=== PATIENT | female | born 1985 | race African-American/Black ===

== ENCOUNTER 2025-07-28 07:44 | Emergency (ER) | payer BC, MEDICAID, SELFPAY ==
[2025-07-28] VITALS (25 sets, daily range): BP systolic 103–152; BP diastolic 57–92; PULSE 54–74; RESP 20; TEMP 36.5; O2SAT 96–100
[2025-07-28 07:59] LABS: Appearance Urine Clear (Clear)
--- NOTE | 2025-07-28 08:28 | ED.GENADULT ---
HPI - General Adult General Time Seen by Provider: 08:28 Date Seen: 07/28/25 Chief complaint: Dizziness/Vertigo Stated complaint: dizziness Time Seen by Provider: 07/28/25 08:27 Source: patient, EMS and RN notes reviewed Mode of arrival: EMS Limitations: no limitations History of Present Illness HPI narrative: This 40-year-old female was brought in by EMS the ER after awakening feeling dizzy this morning. She describes it as a room spinning sensation. It is worse with movement, makes her feel nauseated. EMS did report to staff that she has a history of dizziness related anxiety, has taken meclizine for this with relief in the past. EMS started an IV and gave Zofran, helped her nausea but not her dizziness. She has been able to walk unassisted to the room and bathroom but still states she is symptomatic with the room spinning. She reports she is 6 months and did have preeclampsia during . She had a tubal ligation after this . She notes that she has had episodes in the past but nothing this severe. She tried to find her meclizine but somehow it is lost. She notes no numbness tingling, no incoordination. No headache, has not been sick with any cough or cold symptoms, no respiratory symptoms. Here is no tinnitus. No hearing loss. She states this is the most severe she has ever had symptoms. She awoke around 6:00 a.m. feeling nauseated, thought she has maybe going have to throw up and then she realized she was dizzy, describes it as a spinning sensation. 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 She is status post tubal ligation. She has a history of severe preeclampsia. Related Data Home Medications ?Medication ?Instructions ?Recorded ?Confirmed sertraline .ROUTE 07/28/25 Previous Rx's ?Medication ?Instructions ?Recorded meclizine 25 mg tablet 25 mg PO QID PRN #60 tabs 07/28/25 Allergies Allergy/AdvReac Type Severity Reaction Status Date / Time tramadol Allergy Unknown Verified 07/28/25 08:01 Review of Systems Status of ROS: Reports: 6 or more systems reviewed and unremarkable except as noted in History and below PFSH PFSH Social History Smoking Status: Never smoker Do you use any of these nicotine containing products: None Second hand tobacco smoke exposure: No How often do you have a drink containing alcohol: never AUDIT-C Alcohol total score: 0 Non-prescribed substance use: denies use Exam Const: Vital Signs, click to edit/add: Vital Signs - 24 hr 07/28/25 07:50 07/28/25 08:02 07/28/25 08:03 Temperature 97.7 F Pulse Rate 55 L 56 L Pulse Rate [Pulse Oximeter] 63 Respiratory Rate 20 Blood Pressure 136/82 Blood Pressure [Ri ght Upper Arm] 152/92 H Pulse Oximetry 98 98 98 Oxygen Delivery Me thod Room Air 07/28/25 08:15 07/28/25 08:17 07/28/25 08:30 Temperature Pulse Rate 62 58 L 57 L Pulse Rate [Pulse Oximeter] Respiratory Rate Blood Pressure 111/62 Blood Pressure [Ri ght Upper Arm] Pulse Oximetry 97 96 98 Oxygen Delivery Me thod 07/28/25 08:32 07/28/25 08:45 07/28/25 08:46 Temperature Pulse Rate 73 56 L 60 Pulse Rate [Pulse Oximeter] Respiratory Rate Blood Pressure 105/57 L 112/62 Blood Pressure [Ri ght Upper Arm] Pulse Oximetry 100 99 99 Oxygen Delivery Me thod 07/28/25 09:00 07/28/25 09:01 07/28/25 09:02 Temperature Pulse Rate 67 69 65 Pulse Rate [Pulse Oximeter] Respiratory Rate Blood Pressure 113/86 Blood Pressure [Ri ght Upper Arm] Pulse Oximetry 98 98 100 Oxygen Delivery Me thod 07/28/25 09:05 07/28/25 09:17 07/28/25 09:18 Temperature Pulse Rate 67 68 Pulse Rate [Pulse Oximeter] Respiratory Rate Blood Pressure 122/85 Blood Pressure [Ri ght Upper Arm] Pulse Oximetry 99 98 99 Oxygen Delivery Me thod 07/28/25 09:30 Temperature Pulse Rate 63 Pulse Rate [Pulse Oximeter] Respiratory Rate Blood Pressure Blood Pressure [Ri ght Upper Arm] Pulse Oximetry 98 Oxygen Delivery Me thod This 40-year-old female is lying on the bed in exam room to, lying on her left side with covers pulled up over her head. She is alert, interactive, very pleasant. Pupils are about 2-3 mm, equal and round, conjugate gaze. She does seem to have a little fine beating nystagmus centrally but really has lateral beating to the left gaze,, do not see it looking to the right. Head impulse causes her symptoms, difficult to make her keep her eyes open so I can watch her. She notes it bothers her with head impulse to both sides but definitely seem like she complained that a bothered her more when I did it to the right. She has some wax in her canals but can see down to little bit of the TMs, note no drainage or erythema. Symmetrical facial function otherwise, speech is normal. Lungs are clear, good air entry, no wheezing or crackles, CV regular rate and rhythm, no murmur, normal S1-S2. She has symmetrical 5/5 strength throughout her upper and lower extremities, normal sensation throughout. Documenting provider has reviewed patient's vital signs: yes Course Course ED Course: This patient sounds like she has peripheral vertigo but will talk to Neurology about her. She does have higher risk for possible vascular complications given her history with preeclampsia. Her exam is not necessarily consistent with peripheral vertigo. Will give her meclizine and give her IV dose of Valium to see if that helps with her symptoms. Have reviewed with her the differential between central and peripheral vertigo. This can be difficult to sort out without neuro imaging and will touch base with Neurology. Reevaluation(s) Time of Reevaluation #1: 10:10 Reevaluation #1: Patient notes she is feeling better. We reviewed her normal head CT. Plan will be to discharge to home with meclizine, return with worsening or unrelenting symptoms. Consultations Consultation #1: Have spoken to [facility] Neuro from [facility]. He feels there are symptoms here that are more suggestive of peripheral. Her wanting to keep her eyes closed makes her feel better, movement worsens this. Her head impulse generated symptoms, she preferred to keep her eyes closed, was difficult to keep her eyes open. She has had a history of this in the past. We are going to do a plain head CT at his request. If the head CT is not showing anything, she responds to the medicines, he believes the pictures more peripheral. I will let him know if we are not meeting these criteria and he will see her at that point. Patient is updated on this. Time: 08:54 Vital Signs Vital signs: Initial Vital Signs Temperature 97.7 F 07/28/25 07:50 Temperature Source Temporal Artery Scan 07/28/25 07:50 Pulse Rate 63 07/28/25 07:50 Respiratory Rate 20 07/28/25 07:50 Blood Pressure 152/92 H 07/28/25 07:50 Blood Pressure Mean 112 H 07/28/25 07:50 Blood Pressure Position Supine 07/28/25 07:50 Pulse Oximetry 98 07/28/25 07:50 Oxygen Delivery Method Room Air 07/28/25 07:50 Vital Signs Temperature 97.7 F 07/28/25 07:50 Pulse Rate 63 07/28/25 07:50 Respiratory Rate 20 07/28/25 07:50 Blood Pressure 152/92 H 07/28/25 07:50 Pulse Oximetry 98 07/28/25 07:50 Oxygen Delivery Method Room Air 07/28/25 07:50 Temperature 97.7 F 07/28/25 07:50 Pulse Rate 63 07/28/25 09:30 Respiratory Rate 20 07/28/25 07:50 Blood Pressure 122/85 07/28/25 09:18 Pulse Oximetry 98 07/28/25 09:30 Oxygen Delivery Method Room Air 07/28/25 07:50 Medications Administered Medications: Discontinued Medications Generic Name Dose Route Start Last Admin Trade Name Freq PRN Reason Stop Dose Admin Diazepam 5 mg 07/28/25 08:39 07/28/25 08:51 Diazepam 5 Mg/Ml Inj IV 07/28/25 08:40 5 mg ONCE ONE Administration Sodium Chloride 500 mls @ 500 mls/hr 07/28/25 08:39 07/28/25 08:51 0.9 % Sodium Chloride 500 Ml IV 07/28/25 09:38 500 mls/hr .Q1H ONE Administration Meclizine HCl 25 mg 07/28/25 08:39 07/28/25 08:51 Meclizine Hcl 25 Mg Tablet PO 07/28/25 08:40 25 mg ONCE ONE Administration Medical Decision Making Lab Data Labs: Lab Results 07/28/25 07/28/25 Range/Units 07:50 08:51 WBC 6.47 (4.50-11.00) K/uL RBC 4.79 (4.00-5.20) m/uL Hgb 11.4 L (12.0-16.0) gm/dL Hct 33.1 (33.0-51.0) % MCV 69 L (80-100) fL MCH 24 L (26-34) pg MCHC 34 (32-36) gm/dL RDW Coeff of [place] 15.3 (11.5-15.5) % Plt Count 314 (140-440) K/uL Neut % (Auto) 69.7 (42.0-72.0) % Lymph % (Auto) 22.4 (20-44) % [place] % (Auto) 6.2 (0.0-11.0) % Eos % (Auto) 0.8 (0.0-7.0) % Baso % (Auto) 0.9 (0.0-3.0) % Neut # (Auto) 4.51 (1.7-7.0) K/uL Lymph # (Auto) 1.45 (0.90-2.90) K/uL [place] # (Auto) 0.40 (0.00-0.90) K/UL Eos # (Auto) 0.05 (0.00-0.50) K/uL Baso # (Auto) 0.06 (0.00-0.30) K/uL Abs Immat Gran (auto) 0.00 (0.00-0.30) K/uL Imm/Tot Granulo (auto) 0.0 % Sodium 139 (135-149) mmol/L Potassium 3.9 (3.6-5.1) mmol/L Chloride 103 (96-114) mmol/L Carbon Dioxide 27 (20-32) mmol/L Anion Gap 9 (7-15) mEq/L BUN 10 (5-24) mg/dL Creatinine 0.9 (0.5-1.5) mg/dL Estimated GFR 84 ml/min Glucose 116 H (60-115) mg/dL Calcium 9.0 (8.4-10.6) mg/dL Urine Color Yellow (Yellow) Urine Appearance Clear (Clear) Urine pH 8.0 (5.0-8.5) Ur Specific [place] 1.015 (1.000-1.030) Urine Protein Negative (Negative) Urine Glucose (UA) Negative (Negative) Urine Ketones Negative (Negative) Urine Blood 2+ A (Negative) Urine Nitrite Negative (Negative) Urine Bilirubin Negative (Negative) Urine Urobilinogen 0.2 (0.2-1.0) Ur Leukocyte Esterase Negative (Negative) Urine RBC 0-2 (0-2) Urine WBC 0-2 (0-5) Ur Squamous Epith Cells Few (None-Few) Urine Bacteria Few A (None) Imaging Data CT scan - head: Attestation: I have reviewed the pertinent imaging results. Radiologist's impression: Patient: RUSTAM ATWOOD Facility:?[facility] Patient ID:?[id number] Site Patient ID:?[id number]. Site :?[id number] Study:?CT-Head W/O-07/28/2025 9:20:56 AM Ordering Physician:?Debbie Boo Final Report: Indication: Vertigo. Technique: Noncontrast CT images of the brain. Comparison: None. Findings: The ventricles and sulci are within normal limits for patient age. No mass effect or midline shift. Hale-white differentiation is maintained. No acute intracranial hemorrhage or pathologic extra-axial fluid collection. Globes are symmetric. Calvarium is intact. Mild opacification of the ethmoid air cells. Mastoid air cells are clear. Impression: No acute intracranial hemorrhage or mass effect. Please note that all CT scans at this facility use dose modulation, iterative reconstruction, and/or weight-based dosing when appropriate to reduce radiation dose to as low as reasonably achievable. Dictated by Andrew Oconnor MD @ 07/28/2025 9:26:01 AM (Electronic Signature) ECG Data Attestation: I personally reviewed and interpreted this ECG as follows: (Sinus bradycardia, 57 beats per minute, no ischemia or infarct noted.) Prior ECG tracings: not available for review Discharge Plan Discharge Clinical Impression: Vertigo Patient Disposition: Home, Self-Care Condition: Stable Instructions: Vertigo (ED) Additional Instructions: Can use the meclizine 25 mg every 6 hours as needed for symptoms. Take position changes slowly, try to keep eyes open and fix your gaze on something when moving. If your symptoms are worsening despite the meclizine, not improving with meclizine, return for further evaluation or if you have other concerns. Activity Level: Activity as Tolerated Prescriptions: New meclizine 25 mg tablet 25 mg PO QID PRNQty: 60 0RF No Action sertraline [Zoloft] .ROUTE Follow Up/Referrals: Provider,Not a Local [Primary Care Provider, Family Practice] Stand Alone Forms: Appear Info Instructions
[2025-07-28] MEDS: diazePAM 5 MG/ML inj IV (08:51)
[2025-07-28] MEDS: MECLIZINE HCL 25 MG TABLET PO (08:51)
[2025-07-28] MEDS: 0.9 % SODIUM CHLORIDE 500 ML 500 ML IV (08:51)
--- OUTSIDE RECORDS SUMMARY | 2025-07-28 08:53 | XMS_ITS | Clinical Summary ---
Author Organization [facility] Address [address] [place] [address] Care Team Providers Care Finish Repairer Name Role Phone Unavailable Primary Care Provider Unavailabl e Source Comments Patient records contain information from all sites at [facility]. For routine questions regarding patient records, call [phone] during business hours, M-F 8:00 AM - 5:00 PM Central Time. Record requests for emergency care only can be directed to [phone] at any time.[facility] Allergies Active Allergy Reactions Criticality Noted Date Comments Gabapentin Other (see comments) 07/20/2023 Tramadol GI intolerance 03/01/2020 Medications * This document contains information received from the source organization and may not represent a complete record from that organization. ferrous sulfate 325 mg (65 mg iron) tablet Take 1 tablet (65 mg of iron total) by mouth every other day. 45 tablet 2 4 Active cholecalciferol (Vitamin D3) 50 mcg (2,000 Unit) tablet Take 1 tablet (50 mcg total) by mouth daily. 90 tablet 3 4 Active omeprazole (PriLOSEC) [address] capsule TAKE 1 CAPSULE(20 MG) BY MOUTH DAILY BEFORE BREAKFAST 90 capsule 5 Active acetaminophen (TylenoL) 325 mg tablet Take 325-650 mg by mouth every 4 (four) hours as needed. 5 Active ibuprofen 200 mg tablet Take 200-600 mg by mouth every 6 (six) hours as needed. 5 Active sertraline (Zoloft) 100 mg tabletIndicatio ns:Depression Anxiety,Depress reina Disorder Take 1 tablet (100 mg total) by mouth daily. 90 tablet 3 5 Active Active Problems Patient Care Coordination No te Formatting of this note migh t be different from the original. Seen on 10/[address] Sunshine (Virginie Damon). Primarily seen for pericardial effusion but echo and ultrasound were WNL. 2 of the 5 other children have Rickets. She would like testing at delivery for this baby. Requesting genetic testing on cord blood as recommended buy Genetics. Problem Noted Date Diagnosed Date Counseling Sterilization 12/24/2024 Overview (12/24/2024): Patient states she does not want future pregnancies. Federal sterilization consent signed. Anemia Iron Deficiency 09/17/2024 Other Thalassemias 07/29/2024 Overview (09/14/2024): Hematology: Cecil Warren is a 39 y.o. 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 Patient has been evaluated. Her hemoglobin C trait and alpha-thalassemia trait combination is actually protective. I do not expect any complications since she has had 6 successful pregnancies and deliveries prior. I will obtain baseline hemolysis labs. I will also obtain a ferritin to ensure that she has been adequately treated for her iron-deficiency. If she is unable to have her ferritin come up appropriately I will consider providing a g of IV iron dextran. Given that her noted abnormalities are treat only I expect no issues throughout the remainder . She has been appropriately referred to genetic counseling and had testing through them. If there are concerns with decreased hemoglobin after delivery consider checking hemolysis labs and comparing. Summary of Plan Obtain baseline hemolysis labs and repeat iron panel, ferritin, and peripheral smear Patient to continue oral iron supplementation at this time, if inadequate response we will consider transitioned to IV dextran I will plan to follow up with the patient within 2-3 months of delivery to recheck labs. If there are no issues at this follow up I will plan on discharging her from Hematology Clinic. Deficiency Vitamin D 07/09/2024 Overview (12/24/2024): Level with NOB labs=14, replacement with 2000 iu sent. 12/10/2024 recheck equals 26. Anemia 07/09/2024 Overview (12/24/2024): Hgb 10.3 with NOB labs. Iron rx sent. Hematology consult ordered. Patient missed this and is rescheduled. She has received iron infusion. Hemoglobin increased to 10.9. 12/24/2024: Resuming every other day oral iron Assessment & Plan (01/28/2025 6:34 PM CDT): With Personal Hist ory Preeclampsia Previous 07/08/2024 Overview (07/08/2024): Baseline labs ordered. LDASA after 12 weeks. Assessment & Plan (01/28/2025 6:34 PM CDT): Multigravida Advanced Matern al Age Affecting Management 07/08/2024 Overview (01/21/2025): x 5 Dating: LMP c/w 9 wk US FOB: Anothony (significant other) Carrier/aneuploidy screening: NIPS WNL LDASA: After 12 weeks PPBC: FSC signed 12/24/24 Presentation at 36 wks: Cephalic with growth just under the 50th percentile. Delivery Plan: IOL at 39 weeks 12/12/2024 ultrasound growth at 33rd percentile. Next visit: hematology consult Consider follow up post as is improving. Is Prilosec helping. Work note given for 01/23 Induction scheduled for 02/03/25, cervical ripening coming in on 02/02. Issues: Term x 5, IAB x 1: Last two children diagnosed with rickets. Established with endo at [facility]. Collect cord blood. PrePreg BMI: 33 Hx Preeclampsia: Baseline labs ordered. LDASA after 12 weeks Hx Depression: Currently well-controlled on sertraline, although she has been taking this inconsistently. PHQ with NOB intake=2. Abnormal CBC and Hgb Electrophoresis: Hematology consult 12/16, CBC repeated 12/10. Heme consult post . Vit D Deficiency: Replacement ordered, 26 on 12/10. Appts and us ordered thru term. Assessment & Plan (01/28/2025 6:34 PM CDT): Abuse Cannabis 07/08/2024 Rickets Vitamin D Resistant 12/16/2022 Overview (08/14/2024): Children from last who diagnosed with rickets at approximately 1 year of life Patient has been referred to [facility] and genetics Assessment & Plan (01/28/2025 6:34 PM CDT): Depressive Disorder 12/16/2022 Overview (07/08/2024): Currently well-controlled on sertraline, although she has been taking this inconsistently. PHQ with NOB intake=2. Will restart, new rx sent. Assessment & Plan (03/14/2025 12:57 PM CDT): Orders: sertraline (Zoloft) 100 mg tablet; Take 1 tablet (100 mg total) by mouth daily. 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 They have two children with rickets. Has seen genetics at [facility] with her children. Genetics referral placed for RST. Resolved Problems Problem Noted Date Diagnosed Date Resolved Date Supervision Of Wit h Grand Multiparity First Trimester 12/16/2022 08/22/2023 Overview (12/16/2022): Increased risk for hemorrhage Considering open adoption for this With Personal Hist ory Preeclampsia Previous 12/16/2022 08/22/2023 Overview (12/16/2022): Baseline labs normal, protein creatinine ratio pending low-dose aspirin ordered, to start at 14 weeks Counseling Sterilization 12/16/202212/2023 Overview (12/16/2022): Possible tubal ligation, would prefer immediately if she decides to go this route Discuss later in , sign Federal tubal sterilization papers Multigravida Advanced Matern al Age Affecting Management 12/16/2022 08/22/2023 Overview (12/16/2022): Desires cell free DNA, collected next visit Preeclampsia 07/08 Encounters Date Type Department Care Team Description 05/21/2025 Results Follow-Up Department of Obstetrics and Gynecology in [place], [place] [address] [phone] Patricia Padilla M.D. Vaginitis Panel, Amplified RNA, Chlamydia / Gonorrhoeae Amplified RNA 05/20/2025 10:30 AM CDT Office Visit Department of Obstetrics and Gynecology in [place], [place] [address] [phone] Patricia Padilla M.D. Unspecified Dyspareunia (Primary Dx) Discharge Disposition: Home or Self Care from Last 3 Months Immunizations Immunization Administration Dates Next Due Tdap 11/12/2024 Family History Medical History Relation Name Comments Alcohol abuse Brother Dm No Known Problems Daughter 1 Rickets Daughter 2 LEAL,BABYGIRL Scoliosis Daughter 2 LEAL,BABYGIRL Rickets Daughter 3 Scoliosis Daughter 3 No Known Problems Father Glaucoma Maternal Grandfather Alzheimer's disease Maternal Grandmother Aleta Stroke Maternal Grandmother Granearline Hypertension Mother Mom Autism spectrum disorder Nephew 1 Autism spectrum disorder Nephew 2 Agustín syndrome Niece 1 Sickle cell trait Other 2 Glaucoma Paternal Grandfather Hypertension Paternal Grandmother Grandpa Obesity Paternal Grandmother Grandpa No Known Problems Sister 1 Alcohol abuse Sister 2 Zahra No Known Problems Sister 3 No Known Problems Son 1 Autism spectrum disorder Son 2 astigmatism Son 2 Relation Name Status Comments Brother Dm Alive Daughter 1 Alive Daughter 2 LEAL,BABYGIRL Alive Daughter 3 Alive Father Alive Maternal Grandfather Maternal Grandmother Granny Mother Mom Alive Nephew 1 Alive Nephew 2 Alive Niece 1 Alive Niece 2 Alive Niece/Nephew 1 Alive Niece/Nephew 2 Alive Niece/Nephew 3 Alive Niece/Nephew 4 Alive Niece/Nephew 5 Alive Other 1 Fetus - In Utero Other 2 Alive Other 3 Alive Other 4 Alive Other 5 Alive Diabetes type1 Other 6 Alive Other 7 Alive Paternal Grandfather Alive Paternal Grandmother Grandpa Alive Sister 1 Alive Sister 2 Zahra Alive Sister 3 Alive Son 1 Alive Son 2 Alive Social History Tobacco Use Types Packs/Day Years Used Date Smoking Tobacco: Never Smokeless Tobacco: Never Tobacco Cessation:Counseling Given: Not Answered Alcohol Use Standard Drinks/Week Comments Not Currently 0 (1 standard drink = 0.6 oz pur e alcohol) [facility] Utilities Answer Date Recorded In the past 12 months has th e [employer], gas, oil, or water [employer] threatened to shut off services in your home? No 07/11/2024 Hunger Vital Sign Answer Date Recorded Within the past 12 months, y ou worried that your food would run out before you got the money to buy more. Never true 07/11/20 24 Within the past 12 months, t he food you bought just didn't last and you didn't have money to get more. Never true 07/11/2024 PRAPARE - Transportation Answer Date Re corded In the past 12 months, has l ack of transportation kept you from medical appointments or from getting medications? No 03/2024 In the past 12 months, has l ack of transportation kept you from meetings, work, or from getting things needed for daily living? No 07/11/2024 Depression Answer Date Recor ded PHQ-9 Total Score (max 27) 1 03/14 Housing Stability Answer Date Recorded What is your living situation today? I have a [facility] place to live 07/11/2024 Education Answer Date Recorded What is the highest level of school you have completed or the highest degree you have received? Associate degree: occupational, technical, or vocational program 12/02/2022 Comments No Sex and Gender Information Value Date Recorded Sex Assigned at Female 07/11/2024 9:22 AM ONCOLOGY SOCIAL WORK Legal Sex Female 3:52 PM CDT Gender Identity Female 07/11/2024 9:22 AM ONCOLOGY SOCIAL WORK Sexual Orientation Straight 07/11/2024 9: 22 AM ONCOLOGY SOCIAL WORK Last Filed Vital Signs Vital Sign Reading Time Taken Comments Blood Pressure 124/81 05/20/2025 10:26 AM CDT Pulse 77 03/14/2025 9:00 AM CDT Temperature 36.1 C (97 F) 03/14/2025 9:00 AM CDT Respiratory Rate 16 12/16/2022 9:28 AM CDT Oxygen Saturation 100% 10/10/2024 10:51 AM ONCOLOGY SOCIAL WORK Inhaled Oxygen Concentration - - Weight 91.7 kg (202 lb 2.6 oz) 03/14/2025 9:00 A M CDT Height 166 cm (5' 5.35) 03/14/2025 9:00 AM CDT Body Mass Index 33.28 03/14/2025 9:00 AM CDT Plan of Treatment Health Maintenance Due Date Last Done Comments Tobacco Cessation counseling 1987 Hepatitis B Vaccines (1 of 3 - 19+ 3-dose series) 2006 HPV Vaccines (1 - 3-dose SCD M series) 2014 COVID-19 Vaccine (2024-2 6 season) 2025 Influenza Vaccine (#1) 2025 Depression Monitoring (PHQ-9) 07/15/2025 03/14/2025 Cervical/Vaginal Cancer Screening 04/22/2026 04/22/2021 (Performed elsewhere), 04/22/2021 Lipid (Cholesterol) Screening 04/22/2026 04/22/2021 DTaP,Tdap,and Td Vaccines (3 - Td or Tdap) 11/12/2034 11/12/2024, 04/22/2021 HIV Screening Completed 07/08/2024, 04/22/2021 Hepatitis C Screening Completed 07/08/2024 Depression Monitoring (PHQ-9 for quality tracking) Completed 03/14/2025, 03/14/2025 IPV Vaccines Aged Out No longer eligi ble based on patient's age to complete this topic Pneumococcal vaccine (0-49 years) Aged Out No longer eligible b ased on patient's age to complete this topic Medical Devices Implanted Type Area Microbiology Technician Device Identifier Shelf Expiration Date Model / Serial / Lot Subdermal Contraceptive Implant- 3 Implanted:2022 (Quantity not on file) Subdermal Contraceptive Implant Arm Procedures Procedure Name Priority Date/Time Associated Diagnosis Comments CHLAMYDIA/GONORRHOE AE AMPLIFIED RNA Routine 05/20/2025 10:39 AM CDT Unspecified Dyspareunia VAGINITIS PANEL, AMPLIFIED RNA Routine 05/20/2025 10:39 AM CDT Unspecified Dyspareunia HCV AB SCRN , S Routine 07/08/2024 1:12 PM ONCOLOGY SOCIAL WORK Examination Test With Positive Result (HCC) HIV-1/-2 AG AND AB SCRN, PLASMA Routine 07/08/2024 1:11 PM ONCOLOGY SOCIAL WORK Examination Test With Positive Result (HCC) from Last 3 Months or Most Recently Relevant to Health Maintenance Results * (ABNORMAL) Vaginitis Panel, Amplified RNA (05/20/2025 10:39 AM CDT) Bacterial Vaginosis, Amplified RNA Negative Negative 05/20/2025 10:29 PM CDT [facility] Comment: A negative result does not exclude infection. Assay result is based on relative amounts of Lactobacillus (L. gasseri, L. crispatus, L. jensenii), Gardnerella vaginalis and Atopobium vaginae. Evita species, Amplified RNA Positive(A) Negative 05/20/2025 10:39 PM CDT [facility] Comment: Evita albicans, C. tropicalis, C. parapsilosis and/or C. dubliniensis RNA detected. Individual organisms are not identified or reported by this assay. Results should be interpreted alongside clinical presentation. Up to 21% of asymptomatic patients may be positive by this assay. Evita glabrata, Amplified RNA Negative Negative 05/20/2025 10:39 PM CDT [facility] Comment: No RNA detected from Evita glabrata. A negative result does not exclude infection. Trichomonas vaginalis Amplified RNA Negative Negative 05/20/2025 10:39 PM CDT [facility] Swab (Vagina) 05/20/2025 10: 39 AM CDT 05/20/2025 7:04 PM CDT Patricia Padilla M.D. LAB MICROBIOLOGY - GENERAL O RDERABLES Final Result [facility] [place] [address], [facility] [address] * Chlamydia / Gonorrhoeae Amplified RNA (05/20/2025 10:39 AM CDT) Source Swab, Vagina 05/20/2025 11:36 PM CDT [facility] Chlamydia trachomatis amplified RNA Negative Negative 05/20/2025 11:36 PM CDT [facility] Source Swab, Vagina 05/20/2025 11:36 PM CDT [facility] Neisseria gonorrhoeae amplified RNA Negative Negative 05/20/2025 11:36 PM CDT [facility] Swab (Vagina) 05/20/2025 10: 39 AM CDT 05/20/2025 7:04 PM CDT us Patricia Padilla M.D. LAB MICROBIOLOGY - GENERAL O RDERABLES Final Result [facility] [address] [place] [address], [facility] [address] [place] [phone] * Hepatitis C Virus Antibody Screen (07/08/2024 1:12 PM ONCOLOGY SOCIAL WORK) HCV Ab Scrn , S Negative Negative 07/09/2024 10:37 AM ONCOLOGY SOCIAL WORK [facility] Comment: Consumption of high-dose biotin supplement within 12 hours of blood collection for this test can cause false-negative results. Blood (Blood, Venous) 07/08/2024 1:12 PM ONCOLOGY SOCIAL WORK 07/09/2024 7:55 AM ONCOLOGY SOCIAL WORK us Bailey aGndara CNM, D.N.PJae LAB MICROBIOLOGY - BL OOD ORDERABLES Final Result [facility] [address] [place] [address] [facility] [address] [place] [address] * HIV-1/-2 Ag and Ab Scrn, Plasma (07/08/2024 1:11 PM ONCOLOGY SOCIAL WORK) HIV Ag/Ab Scrn, P Negative Negative 07/09/2024 12:42 PM ONCOLOGY SOCIAL WORK [facility] Comment: Negative result does not rule out HIV infection. If exposure to HIV infection occurred <14 days ago, contact the laboratory to request addition of HIV-1/HIV-2 RNA detection , Plasma (HPP12). HIV-1 p24 Ag Scrn, P Negative Negative 07/09/2024 12:42 PM ONCOLOGY SOCIAL WORK [facility] Comment: Negative result does not rule out HIV infection. If exposure to HIV infection occurred <14 days ago, contact the laboratory to request addition of HIV-1/HIV-2 RNA detection , Plasma (HPP12). HIV-1 Ab Scrn, P Negative Negative 07/09/2024 12:42 PM ONCOLOGY SOCIAL WORK [facility] Comment: Negative result does not rule out HIV infection. If exposure to HIV infection occurred <14 days ago, contact the laboratory to request addition of HIV-1/HIV-2 RNA detection , Plasma (HPP12). HIV-2 Ab Scrn, P Negative Negative 07/09/2024 12:42 PM ONCOLOGY SOCIAL WORK [facility] Comment: Negative result does not rule out HIV infection. If exposure to HIV infection occurred <14 days ago, contact the laboratory to request addition of HIV-1/HIV-2 RNA detection , Plasma (HPP12). Blood (Blood, Venous) 07/08/2024 1:11 PM ONCOLOGY SOCIAL WORK 07/09/2024 10:35 AM ONCOLOGY SOCIAL WORK Bailey Gandara CNM, D.N.P. LAB MICROBIOLOGY - BL OOD ORDERABLES Final Result [facility] [address] [place] [id number], [facility] [address] [place] [phone] from Last 3 Months or Most Recently Relevant to Health Maintenance Insurance [address] [place] [id number] [place] [address] [facility]
--- OUTSIDE RECORDS SUMMARY | 2025-07-28 08:53 | XMS_ITS | Encounter Summary ---
Author Organization [facility] Address [address] [place] [address] Care Team Providers Care Vault Attendant Name Role Phone Unavailable Primary Care Provider Unavailabl e Encounter Details Date Type Department Care Team (Late st Contact Info) Description 05/21/2025 Results Follow-Up Department of Obstetrics and Gynecology in [place], [place] [address] [phone] Patricia Padilla M.D. [address] [place] [phone] Vaginitis Panel, Amplified RNA, Chlamydia / Gonorrhoeae Amplified RNA Social History Tobacco Use Types Packs/Day Years Used Date Smoking Tobacco: Never Smokeless Tobacco: Never Alcohol Use Standard Drinks/Week Comments Not Currently 0 (1 standard drink = 0.6 oz pur e alcohol) [facility] Utilities Answer Date Recorded In the past 12 months has th e [employer], gas, oil, or water [employer] threatened to shut off services in your [...] your living situation today? I have a [facility] place to live 07/11/2024 Education Answer Date Recorded What is the highest level of school you have completed or the highest degree you have received? Associate degree: occupational, technical, or vocational program 12/02/2022 Comments No Sex and Gender Information Value Date Recorded Sex Assigned at Female 07/11/2024 9:22 AM CLUB CAR ATTENDANT Legal Sex Female 3:52 PM CDT Gender Identity Female 07/11/2024 9:22 AM CLUB CAR ATTENDANT Sexual Orientation Straight 07/11/2024 9: 22 AM CLUB CAR ATTENDANT documented as of this encounter Plan of Treatment Not on file documented as of this encounter Visit Diagnoses Diagnosis Acute Candidiasis Of Vulva And Vagina- Primary documented in this encounter Additional Health Concerns Assessment Noted Time PHQ-9 Depression Total Score: 1 03/14/20 25 8:58 AM CDT documented as of this encounter
--- OUTSIDE RECORDS SUMMARY | 2025-07-28 08:53 | XMS_ITS | Clinical Summary ---
Author Organization [email or web address] [facility] Address [address] [place] [id number] Care Team Providers Care Rough Carpenter Name Role Phone Fabby Maldonado NP Primary Care Provider [phone] Allergies Active Allergy Reactions Criticality Noted Date Comments Gabapentin Dizziness 07/20/2023 Tramadol Vomiting 03/01/2020 Medications etonogestrel subdermal implant (NEXPLANON) 68 mg implant Inject 1 Each subcutaneous. placed 03/02/23 3 03/02/20 28 Active metoclopramide (REGLAN) 5 mg tablet Take 1 Tablet (5 mg) by mouth every 6 hours if needed for Nausea/Vomiting. 120 Tablet 3 3 Active sertraline (Zoloft) 50 mg tabletIndicati ons:Anxiety Take 1.5 Tablets (75 mg) by mouth once daily. 1/2 tablet PO once daily for one week, then increase to 1 tablet once daily 45 Tablet 1 3 Active acetaminophen 325 mg tabletIndicati ons:S/P tubal ligation,Spont aneous vaginal delivery (HC) Take 1-2 Tablets (325-650 mg) by mouth every 4 hours if needed (mild pain). Max acetaminophen dose: 4000mg in 24 hrs. 60 Tablet 1 5 Active ibuprofen (Motrin IB) 200 mg tabletIndicati ons:S/P tubal ligation,Spont aneous vaginal delivery (HC) Take 1-3 Tablets (200-600 mg) by mouth every 6 hours if needed (for uterine cramping). Take with food. 60 Tablet 1 5 Active polyethylene glycol 17 g per packet packetIndicati ons:S/P tubal ligation Mix 17 g in liquid then take by mouth once daily. 30 Packet 5 Active oxyCODONE 5 mg immediate release tabletIndicati ons:S/P tubal ligation,Spont aneous vaginal delivery (HC) Take 1 Tablet (5 mg) by mouth every 4 hours if needed for Pain. 10 Tablet 5 Active Active Problems Problem Noted Date Diagnosed Date S/P tubal ligation 02/02/2025 Overview (02/02/2025): Bilateral Salpingectomy 02/02/2025 Normal labor 02/01/2025 Grand multiparity 02/01/2025 Meconium in amniotic fluid 02/01/2025 Spontaneous vaginal delivery 02/01/2025 Encounter for other general counseling and advice on contraception 12/24/2024 Overview (02/01/2025): Patient states she does not want future pregnancies. Federal sterilization consent signed. Other thalassemias 07/29/2024 Overview (02/01/2025): Hematology: Cecil Warren is a 39 y.o. [...] plan on discharging her from Hematology Clinic. Anemia complicating , unspecified trime ster 07/09/2024 Overview (02/01/2025): Hgb 10.3 with NOB labs. Iron rx sent. Hematology consult ordered. Patient missed this and is rescheduled. She has received iron infusion. Hemoglobin increased to 10.9. 12/24/2024: Resuming every other day oral iron Vitamin D deficiency 07/09/2024 Overview (02/01/2025): Level with NOB labs=14, replacement with 2000 iu sent. 12/10/2024 recheck equals 26. Cannabis abuse, uncomplicated 07/08/2024 Elderly multigravida with an tepartum condition or complication 07/08/2024 Overview (02/01/2025): x 5 Dating: LMP c/w 9 wk [...] diagnosed with rickets. Established with endo at [facility]. Collect cord blood. PrePreg BMI: 33 Hx Preeclampsia: Baseline labs ordered. LDASA after 12 weeks Hx Depression: Currently well-controlled on sertraline, although she has been taking this inconsistently. PHQ with NOB intake=2. Abnormal CBC and Hgb Electrophoresis: Hematology consult 12/16, CBC repeated 12/10. Heme consult post . Vit D Deficiency: Replacement ordered, 26 on 12/10. Appts and us ordered thru term. Supervision of other high ri sk pregnancies, unspecified trimester 07/08/2024 Overview (02/01/2025): Baseline labs ordered. LDASA after 12 weeks. Depressive disorder 12/16/2022 Overview (02/01/2025): Currently well-controlled on sertraline, although she has been taking this inconsistently. PHQ with NOB intake=2. Will restart, new rx sent. 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 They have two children with rickets. HAs seen genetics at [facility] with her children. Genetic carrier of other disease 11/28/2022 Overview (02/01/2025): Carrier for Hereditary vitamin D-resistant rickets, significant other is also carrier. They have two children with rickets. Has seen genetics at [facility] with her children. Genetics referral placed for RST. Resolved Problems Problem Noted Date Diagnosed Date Resolved Date Grand multiparity 11/28/2022 02/01/2025 High risk , multigr avida of advanced maternal age 0311/28/2022 02/01/2025 11/28/2022 11/28/2022 11/28/2022 11/28/2022 Overview (11/28/2022): History of severe pre-eclampsia 11/28/2022 02/01/2025 Marijuana use during 11/28/2022 02/01/2025 Prediabetes 05/03/2022 02/01/2025 Numbness and tingling of right arm 07/09/2020 11/28/2022 Refused influenza vaccine 07/09/2020 Insomnia, idiopathic 05/27/2020 025 Anxiety 05/27/2020 02/01/2025 Iron deficiency anemia 03/30/202002/01 Overview (07/01/2020): sickle cell trait negative Immunizations Immunization Administration Dates Next Due Tdap 04/22/2021 Family History Medical History Relation Name Comments Rickets Daughter 1 Rickets Daughter 2 Cancer Maternal Grandfather pancrea tic Glaucoma Maternal Grandfather Diabetes Maternal Grandmother Other Maternal Grandmother septic Stroke Maternal Grandmother in 30's Glaucoma Paternal Grandfather Heart attack Paternal Grandfather Relation Name Status Comments Brother Alive Daughter 1 Alive Daughter 2 Alive Daughter 3 Alive Father Alive Maternal Grandfather Maternal Grandmother Mother Alive Paternal Grandfather Paternal Grandmother Alive Sister 1 Alive Sister 2 Alive Sister 3 Alive Sister 4 Alive Son 1 Alive Son 2 Alive Social History Tobacco Use Types Packs/Day Years Used Date Smoking Tobacco: Former Smokeless Tobacco: Never Tobacco Cessation:Counseling Given: Yes Alcohol Use Standard Drinks/Week Comments Yes 0 (1 standard drink = 0.6 oz pur e alcohol) social PHQ-2 Answer Date Recorded PHQ-2 TOTAL SCORE 0 05/29/2023 Social Connections Answer Date Recorded Do you often feel lonely or isolated from those around you? 0 02/01/2025 Financial Resource Strain Answer Date R ecorded Difficulty of Paying Living Expenses 3 02/01/2025 Difficulty of Paying Living Expenses Not on file 02/01/2025 Food Insecurity Answer Date Recorded Do you worry your food will run out before you are able to buy more? 1 02/01/2025 Transportation Needs Answer Date Record ed Does lack of transportation keep you from medica l appointments? 1 02/01/2025 Does lack of transportation keep you from work, meetings or getting things that you need? 1 02/01/2025 Housing Stability Answer Date Recorded What is your housing situation today? 1 02/01/2025 Interpersonal Safety Answer Date Record ed Are you being hit, kicked, p ushed or yelled at (see row info)? No 02/01/2025 Interpersonal Safety Abuse 12 - 18 Not on file 02/01/2025 Interpersonal Safety Ambulatory Vulnerability No t on file 02/01/2025 Utilities Answer Date Recorded Do you have trouble paying f or utilities (for example, heat, electricity, water, phone)? 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 Not on file Not on file Not on file Obstetrics History Para Term AB IAB SAB Ectopic Multiple Livin g Live Births 8 6 6 1 1 0 6 6 Date Outcome GA Total Labor Labor/2nd/3rd Weight Sex Type Anes PTL Barbara A1 A5 Name Clin 2006 Term 41w 0d 3.63 kg (8 lb) M Vag-S pont Livin g 2009 Term 41w 0d 4.48 kg (9 lb 14 oz) F Vag-S pont Livin g 2016 Term 40w 2d 5h 30m 5h 03m/0h 18m/0h 09m 2.77 kg (6 lb 1.7 oz) F Vag-S pont Epidur al N Livin g 9 JOSE G LEAL MD Delivery Location:[facility] 2017 Term 40w 0d 3.18 kg (7 lb) M Vag-S pont Livin g 2018 Term 40w 0d 2.72 kg (6 lb) F Vag-S pont Livin g 2022 IAB Demis e 2024 Term 38w 6d 8h 52m 8h 45m/0h 07m/ 3.38 kg (7 lb 7.2 oz) M Vag-S pont Epidur al Livin g 7 9 Patricia Wilson MD Delivery Location:Hospital ( [facility] ) Last Filed Vital Signs Vital Sign Reading Time Taken Comments Blood Pressure 124/67 02/02/2025 4:00 PM CDT Pulse 74 02/02/2025 1:00 PM CDT Temperature 36.7 C (98.1 F) 02/02/2025 4:00 PM CDT Respiratory Rate 16 02/02/2025 4:00 PM CDT Oxygen Saturation 97% 02/02/2025 11:00 AM CDT Inhaled Oxygen Concentration - - Weight 89.8 kg (198 lb) 06/28/2024 3:12 PM CDT Height 165.1 cm (5' 5) 12/23/2024 11:18 AM CDT Body Mass Index 32.95 06/28/2024 3:12 PM CDT Plan of Treatment Health Maintenance Due Date Last Done Comments Hepatitis B series for 19+ (1 of 3 - 19+ 3-dose series) 2006 HPV series for age 9-45 (1 - 3-dose SCDM series) 2014 Depression screening for age 12+ 05/29/2024 05/29/2023, 05/02/2023, 05/02/2022, Additional history exists BMI (ht and wt on same day) for age 18+ 09/21/2024 09/21/2023, 11/28/2022, 09/16/2022, Additional history exists Influenza Vaccine (#1) 2025 Pap test for age 21-65 04/22/2026 , 04/22/2021, 05/27/2020 Tetanus booster 04/22/2031 04/22/2021 RSV vaccine for adults or (1 - 1-dose 75+ series) 2062 Hepatitis C screening for age 18-79 Completed 11/23/2022, 05/02/2022 HIV for age 15-65 Completed 07/08/2024, , 04/22/2021 Pneumococcal series for age 6-49 Aged Out No longer eligible based on patient's age to complete this topic Procedures Procedure Name Priority Date/Time Associated Diagnosis Comments HIV EXTERNAL Routine 07/08/2024 LC HCV ANTIBODY RFX TO QUANT PCR Routine 11/23/2022 1:57 PM CDT care, subsequent in first trimester (HC) [employer] THIN PREP PAP SCREEN IMAGED Routine 04/22/2021 9:15 AM CDT Pap smear for cervical cancer screening from Last 3 Months or Most Recently Relevant to Health Maintenance Results * HIV EXTERNAL (07/08/2024) EXTERNAL HIV Negative [facility] Blood BLOOD SPECIMEN / Unknown us [facility] LAB[facility]ATORY Final Result [facility] [address] [place] [address], [place] * LC HCV ANTIBODY RFX TO QUANT PCR (11/23/2022 1:57 PM CDT) HCV Ab Non Reactive Non Reactive 11/26/2022 12:07 PM CDT [facility] TESTING ([facility]) Blood BLOOD SPECIMEN / Unknown Venipuncture / Unknown 11/23/2022 1:57 PM CDT 11/23/2022 1:59 PM CDT Narrative [facility] ([facility]) - 11/26/2022 12:07 PM CDT Performed at: [address] [place] [id number] Articulation Officer: Jin Sewell MD, Phone: [phone] Bita Cortes MD LABORATORY Fin al Result [facility] ([facility]) [address] [place] [id number], * [employer] THIN PREP PAP SCREEN IMAGED (04/22/2021 9:15 AM CDT) Case Report Gynecologic Cytology Report Case: [id number] Authorizing Provider: Marlin Story DO Collected: 04/22/2021 0915 Ordering Location: [facility] Received: 04/22/2021 0935 Clinic First Screen: Redd Castellano Specimen: [employer] ThinPrep Vial Screening, Cervical 05/05/2021 9:47 AM CDT [facility]-C ENTRAL LABORATORY INTERPRETATION/ RESULT NEGATIVE FOR INTRAEPITHELIAL LESION OR MALIGNANCY (NIL) (none) 05/05/2021 9:47 AM CDT [facility] LABOR[facility]-C ENTRAL LABORATORY at 0947 CDT SPECIMEN ADEQUACY Satisfactory for evaluation Endocervical component present 05/05/2021 9:47 AM CDT [facility] HPV REQUEST HPV and PAP 05/05/2021 9:47 AM CDT [facility] Date of LMP unknown 05/05/2021 9:47 AM CDT [facility] Last Pap Date 05/27/20 05/05/2021 9:47 AM CDT [facility] Last Pap Result NIL 9:47 AM CDT [facility] Abnormal Pap or Armstrong Bx in last 5 years No 05/05/2021 9:47 AM CDT [facility] Menstrual Status Hormonally Suppressed 05/05/2021 9:47 AM CDT [facility] Armstrong Bx Done Today No 05/05/2021 9:47 AM CDT [facility] Additional Information None given 05/05/2021 9:47 AM CDT [facility] Comment: Cytology is screened at [facility] - [address], [place] [address] and [facility] - [address] [place] [address] and [facility] - [address] [place] [address] Interpreted at [facility] - [address], [place] [address] Automated Review Successful 05/05/2021 9:47 AM CDT [facility] Comment:Specimen processed s uccessfully by automated steel die printer device, ThinPrep Imaging System, [employer] ANCILLARY TESTING H[employer] INSPECTOR [employer] SORTER HPV Ordered, Please see separate report 05/05/2021 9:47 AM CDT [facility] Note The pap test is a screening technique, not a diagnostic procedure. It is used primarily to screen for squamous cancers and precursor lesions. Published studies have shown that it is subject to both false negative and false positive results. The pap test should not be used as the sole means to diagnose or exclude pre-malignant and malignant lesions. 05/05/2021 9:47 AM CDT [facility]OR[facility]-C ENTRAL LABORATORY Other (Cervical) Non-Blood / Unknown 04/22/2021 9:15 AM CDT 04/22/2021 9:35 AM CDT us Marlin Isis Jez DO PATHOLOGY/CYTOLOGY Final Res ult [facility] LABORATORY-CENTRAL LABORATORY [address] [place] [address], [place] from Last 3 Months or Most Recently Relevant to Health Maintenance Insurance MEDICAID [facility] Advance Directives * Full Code (Latest Code Status on File) Date Activated Date Inactivated Comments 02/01/2025 11:05 AM 02/02/2025 10:55 PM Question Answer Comments Code Status Discussion: Reviewed Preferences Care Teams Rough Carpenter Relationship Specialty Start Date End Date Fabby Maldonado NP [address] [place] [address] PCP - General Nurse Practitioner - Family 07/01/20
[2025-07-28 08:58] LABS: Hematocrit* 33.1 % (33.0-51.0); Hemoglobin* 11.4 gm/dL (12.0-16.0); Immature Granulocytes Abs Auto 0.00 K/uL (0.00-0.30); Immature Granulocytes Pct Auto 0.0 %; Lymphocytes Absolute Auto 1.45 K/uL (0.90-2.90); Mean Corpuscular HGB Conc 34 gm/dL (32-36); Mean Corpuscular Hemoglobin 24 pg (26-34); Mean Corpuscular Volume 69 fL (80-100); RDW Coefficient of Variation % 15.3 % (11.5-15.5); Red Blood Count* 4.79 m/uL (4.00-5.20); White Blood Count* 6.47 K/uL (4.50-11.00)
--- NOTE | 2025-07-28 08:58 | CRLHL7_ITS ---
For Patients: As a result of the Century Cures Act, medical imaging exams and procedure reports are released immediately into your electronic medical record. You may view this report before your referring provider. If you have questions, please contact your health care provider. Indication: Vertigo. Technique: Noncontrast CT images of the brain. Comparison: None. Findings: The ventricles and sulci are within normal limits for patient age. No mass effect or midline shift. Hale-white differentiation is maintained. No acute intracranial hemorrhage or pathologic extra-axial fluid collection. Globes are symmetric. Calvarium is intact. Mild opacification of the ethmoid air cells. Mastoid air cells are clear. Impression: No acute intracranial hemorrhage or mass effect. Please note that all CT scans at this facility use dose modulation, iterative reconstruction, and/or weight-based dosing when appropriate to reduce radiation dose to as low as reasonably achievable. Dictated by Andrew Oconnor MD @ 07/28/2025 9:26:01 AM (Electronically Signed)
[2025-07-28 08:59] LABS: Slide Review Reflex No
[2025-07-28 09:12] LABS: Chloride* 103 mmol/L (96-114); Sodium* 139 mmol/L (135-149)
[2025-07-28 09:13] LABS: Potassium* 3.9 mmol/L (3.6-5.1)
[2025-07-28 09:15] LABS: Blood Urea Nitrogen* 10 mg/dL (5-24); Creatinine* 0.9 mg/dL (0.5-1.5); Estimated Glomerular Filt Rate 84 ml/min
[2025-07-28 09:16] LABS: Anion Gap 9 mEq/L (7-15); Calcium* 9.0 mg/dL (8.4-10.6); Carbon Dioxide* 27 mmol/L (20-32); Glucose* 116 mg/dL (60-115)
[2025-07-28 10:13] LABS: TSH With Reflex to FT4* 0.797 uIU/mL (0.270-4.200)
== END 2025-07-28 10:43 | disposition home or self-care (01) ==
PROVIDERS: Emergency Provider Family Medicine
DX: R42 Dizziness and giddiness (principal)
CPT/HCPCS: 36415; 70450; 80048; 81001; 84443; 85025; 87086; 93005; 94761; 96361; 96374; 99284; 99285; A9270; J3360; J7030